=== PATIENT | female | born 1975 | race Caucasian/White ===

== ENCOUNTER 2020-11-07 17:13 | Emergency (ER) | payer OTHER ==
[2020-11-07] MEDS ORDERED: Sodium Chloride 0.9% 10 ML Syringe FLUSH PRN (18:07)
--- NOTE | 2020-11-07 18:07 | EDM.PDOC ---
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 Michelle reported feeling off last night before bed and describes lower abdominal pressure/discomfort. Michelle took Miralax today with not change or improvement. Michelle has taken no OTC medication but drank adequate fluids but decreased appetite, not necessarily loss of appetite. Michelle denies cough or URI symptoms, no diarrhea with decreased BM (none today normally goes twice per day). Michelle denies history of abdominal surgery and no similar symptoms in the past. - Related Data Allergies Allergy/AdvReac Type Severity Reaction Status Date / Time No Known Allergies Allergy Verified 11/07/20 17:48 Home Meds: Home Meds Acetaminophen/HYDROcodone [[place] 325-5 MG] 1 - 2 tab PO Q6H PRN 2 Days #10 tab 11/07/20 [Rx] Cefdinir [Omnicef] 300 mg PO BID 7 Days #14 cap 11/07/20 [Rx] metFORMIN HCl [Metformin HCl ER] 500 mg PO DAILY 30 Days #30 tab.er.24h 11/07/20 [Rx] Past Medical History - Past Surgical History Female Surgical History: Reports: Section Social & Family History - Tobacco Use Tobacco Use Status *Q: Never Tobacco User ED ROS GENERAL - Review of Systems Review Of Systems: Comprehensive ROS is negative, except as noted in HPI. ED EXAM, GI/ABD - Physical Exam Exam: See Below Exam Limited By: No Limitations General Appearance: Alert, WD/WN, Moderate Distress (generalized abdominal discomfort ) Eyes: Bilateral: Normal Appearance Ears: Hearing Grossly Normal Nose: Normal Inspection Throat/Mouth: Normal Voice, No Airway Compromise Neck: Normal Inspection, Supple Respiratory/Chest: Lungs Clear, Normal Breath Sounds Cardiovascular: Normal Peripheral Pulses, Regular Rate, Rhythm GI/Abdominal Exam: Guarding, Rebound, Tender (focal right lower abdominal discomfort ), Abnormal Bowel Sounds (Hypoactive ). No: Distended, Rigid Back Exam: Normal Inspection, Full Range of Motion. No: CVA Tenderness (R), CVA Tenderness (L) Extremities: Normal Inspection Neurological: Alert, Oriented, CN II-XII Intact, Normal Cognition, Normal Gait Psychiatric: Normal Affect, Normal Mood Skin Exam: Warm, Dry, Intact, Normal Color, No Rash Course - Vital Signs Last Recorded V/S: Last Vital Signs Temp 36.0 C L 11/07/20 17:55 Pulse 85 11/07/20 20:13 Resp 16 11/07/20 17:55 BP 113/75 11/07/20 20:13 Pulse Ox 94 L 11/07/20 20:13 - Orders/Labs/Meds Orders: Active Orders 24 hr Category Date Time Status Peripheral IV Care [RC] . DIRECTED Care 11/07/20 18:07 Active UA W/MICROSCOPIC [URIN] Stat Lab 11/07/20 20:49 Received Sodium Chloride 0.9% [Normal Saline] 1,000 ml Med 11/07/20 19:15 Active IV ASDIRECTED Sodium Chloride 0.9% [Normal Saline] 80 ml Med 11/07/20 18:45 Active IV ASDIRECTED Sodium Chloride 0.9% [Saline Flush] Med 11/07/20 18:07 Active 10 ml FLUSH ASDIRECTED PRN cefTRIAXone [Rocephin] 1 gm Med 11/07/20 20:31 Active Sodium Chloride 0.9% [Normal Saline] 50 ml IV ONETIME Peripheral IV Insertion Adult [OM.PC] Urgent Oth 11/07/20 18:07 Ordered Medication Orders Sodium Chloride (Normal Saline) 80 mls @ 3.5 mls/sec IV ASDIRECTED PARISH Last Admin: 11/07/20 18:59 Dose: 3 mls/sec Documented by: ALEC Sodium Chloride (Normal Saline) 1,000 mls @ 500 mls/hr IV ASDIRECTED PARISH Ceftriaxone Sodium 1 gm/ (Sodium Chloride) 50 mls @ 100 mls/hr IV ONETIME ONE Stop: 11/07/20 21:00 Sodium Chloride (Sodium Chloride 0.9% 10 Ml Syringe) 10 ml FLUSH ASDIRECTED PRN PRN Reason: Keep Vein Open Last Admin: 11/07/20 18:27 Dose: 10 ml Documented by: MARVA Labs: Laboratory Tests 11/07/20 11/07/2011/07/21 Range/Units 17:59 18:22 18:22 WBC 10.6 (4.5-11.0) K/uL RBC 5.83 H (3.30-5.50) M/uL Hgb 14.1 (12.0-15.0) g/dL Hct 41.1 (36.0-48.0) % MCV 71 L (80-98) fL MCH 24 L (27-31) pg MCHC 34 (32-36) % Plt Count 266 (150-400) K/uL Add Manual Diff Yes Neutrophils % (Manual) 71 H (36-66) % Lymphocytes % (Manual) 21 L (24-44) % Monocytes % (Manual) 6 (2-6) % Eosinophils % (Manual) 2 (2-4) % Atypical Lymphocytes Few Sodium 136 L (140-148) mmol/L Potassium 3.8 (3.6-5.2) mmol/L Chloride 100 (100-108) mmol/L Carbon Dioxide 23 (21-32) mmol/L Anion Gap 16.8 H (5.0-14.0) mmol/L BUN 8 (7-18) mg/dL Creatinine 0.7 (0.6-1.0) mg/dL Est Cr Clr Drug Dosing 108.30 mL/min Estimated GFR (MDRD) > 60 (>60) Glucose 272 H (74-106) mg/dL Calcium 8.7 (8.5-10.1) mg/dL Total Bilirubin 0.6 (0.2-1.0) mg/dL AST 13 L (15-37) U/L ALT 25 (12-78) U/L Alkaline Phosphatase 102 (46-116) U/L C-Reactive Protein (0.0-0.3) mg/dL Total Protein 6.8 (6.4-8.2) g/dL Albumin 3.4 (3.4-5.0) g/dL Globulin 3.4 (2.3-3.5) g/dL Albumin/Globulin Ratio 1.0 L (1.2-2.2) Urine Color Brown A (YELLOW) Urine Appearance Turbid A (CLEAR) Urine pH 5.5 (5.0-8.0) Ur Specific [place] >= 1.030 (1.008-1.030) Urine Protein >=300 H (NEGATIVE) mg/dL Urine Glucose (UA) 500 H (NEGATIVE) mg/dL Urine Ketones >=160 H (NEGATIVE) mg/dL Urine Occult Blood Large H (NEGATIVE) Urine Nitrite Positive H (NEGATIVE) Urine Bilirubin Small H (NEGATIVE) Urine Urobilinogen 0.2 (0.2-1.0) EU/dL Ur Leukocyte Esterase Trace H (NEGATIVE) Urine RBC >100 H (0-5) Urine WBC 50-75 H (0-5) Ur Epithelial Cells Moderate Amorphous Sediment Not seen Urine Bacteria Many Urine Mucus Moderate // Range/Units 18:22 WBC (4.5-11.0) K/uL RBC (3.30-5.50) M/uL Hgb (12.0-15.0) g/dL Hct (36.0-48.0) % MCV (80-98) fL MCH (27-31) pg MCHC (32-36) % Plt Count (150-400) K/uL Add Manual Diff Neutrophils % (Manual) (36-66) % Lymphocytes % (Manual) (24-44) % Monocytes % (Manual) (2-6) % Eosinophils % (Manual) (2-4) % Atypical Lymphocytes Sodium (140-148) mmol/L Potassium (3.6-5.2) mmol/L Chloride (100-108) mmol/L Carbon Dioxide (21-32) mmol/L Anion Gap (5.0-14.0) mmol/L BUN (7-18) mg/dL Creatinine (0.6-1.0) mg/dL Est Cr Clr Drug Dosing mL/min Estimated GFR (MDRD) (>60) Glucose (74-106) mg/dL Calcium (8.5-10.1) mg/dL Total Bilirubin (0.2-1.0) mg/dL AST (15-37) U/L ALT (12-78) U/L Alkaline Phosphatase (46-116) U/L C-Reactive Protein 3.47 H (0.0-0.3) mg/dL Total Protein (6.4-8.2) g/dL Albumin (3.4-5.0) g/dL Globulin (2.3-3.5) g/dL Albumin/Globulin Ratio (1.2-2.2) Urine Color (YELLOW) Urine Appearance (CLEAR) Urine pH (5.0-8.0) Ur Specific [place] (1.008-1.030) Urine Protein (NEGATIVE) mg/dL Urine Glucose (UA) (NEGATIVE) mg/dL Urine Ketones (NEGATIVE) mg/dL Urine Occult Blood (NEGATIVE) Urine Nitrite (NEGATIVE) Urine Bilirubin (NEGATIVE) Urine Urobilinogen (0.2-1.0) EU/dL Ur Leukocyte Esterase (NEGATIVE) Urine RBC (0-5) Urine WBC (0-5) Ur Epithelial Cells Amorphous Sediment Urine Bacteria Urine Mucus Meds: Medications Generic Name Dose Route Start Last Admin Trade Name Haris PRN Reason Stop Dose Admin Sodium Chloride 80 mls @ 3.5 mls/sec 11/07/20 18:45 11/07/20 18:59 Normal Saline IV 3 mls/sec ASDIRECTED PARISH Administration Sodium Chloride 1,000 mls @ 500 mls/hr 11/07/20 19:15 Normal Saline IV ASDIRECTED PARISH Ceftriaxone Sodium 1 gm/ 50 mls @ 100 mls/hr 11/07/20 20:31 Sodium Chloride IV 11/07/20 21:00 ONETIME ONE Sodium Chloride 10 ml 11/07/20 18:07 11/07/20 18:27 Sodium Chloride 0.9% 10 Ml Syringe FLUSH 10 ml ASDIRECTED PRN Administration Keep Vein Open Discontinued Medications Generic Name Dose Route Start Last Admin Trade Name Haris PRN Reason Stop Dose Admin Hydrocodone Bitart/Acetaminophen 2 tab 11/07/20 20:45 Acetaminophen/Hydrocodone 325-5 Mg Tab PO 11/07/20 20:46 ONETIME ONE Fentanyl 50 mcg 11/07/20 18:11 11/07/20 18:27 Fentanyl 100 Mcg/2 Ml Sdv IVPUSH 11/07/20 18:12 50 mcg ONETIME ONE Administration Iopamidol 123 ml 11/07/20 18:33 11/07/20 18:59 Iopamidol 612 Mg/Ml 500 Ml Multipack Bottle IV 11/07/20 18:34 123 ml ONETIME ONE Administration Ondansetron HCl 4 mg 11/07/20 18:08 11/07/20 18:27 Ondansetron 4 Mg/2 Ml Sdv IVPUSH 11/07/20 18:09 4 mg ONETIME ONE Administration Sodium Chloride 10 ml 11/07/20 18:33 11/07/20 18:59 Sodium Chloride 0.9% 10 Ml Syringe FLUSH 11/07/20 18:34 10 ml ONETIME ONE Administration - Re-Assessments/Exams Free Text/Narrative Re-Assessment/Exam: Update Michelle regarding UA results with moderate skin cells with multiple positive findings indicating possible infection, diabetes with ketones but contaminated. UC is not appropriate on current available sample. Ordered UA via straight catheter for further evaluation and allow for UC testing. Blood work noting slightly elevated WBC with left shift indicating possible infection and elevated CRP. Renal and Liver function without significant abnormality to explain symptoms or concerns. test ordered but declined need by patient therefore, cancelled. Chemo shows glu 270s indicating new onset of type 2 diabetes with increased anion gap, dehydration possible. IVF 1 Liter infused at this time while waiting for CT results. Ordered Urine test with Straight cath for further evaluation and testing, patient considering. 11/07/20 19:[address] results noting normal appendix but findings around bladder and right inferior ureter concerning for localized infection. Urine via catheterization was obtained and UC ordered on catheter sample. Rocephin 1 Gm IV infused with plan to prescribed Cefidinir for home use with follow-up to ensure resolution. [place] for moderate to severe pain here and home use discussed. 11/07/20 20:52 Departure - Departure Time of Disposition: 22:30 Disposition: Home, Self-Care 01 Clinical Impression: Urinary tract infection, Dehydration, Diabetes - Discharge Information Prescriptions: Acetaminophen/HYDROcodone [[place] 325-5 MG] 1 - 2 tab PO Q6H PRN 2 Days #10 tab PRN Reason: Pain (Severe 7-10) metFORMIN HCl [Metformin HCl ER] 500 mg PO DAILY 30 Days #30 tab.er.24h Cefdinir [Omnicef] 300 mg PO BID 7 Days #14 cap Instructions: Type 2 Diabetes Mellitus, Diagnosis, Adult, Tips for Eating Away From Home If You Have Diabetes, Complementary and Alternative Medical Therapies for Diabetes, Rehydration, Adult, Dehydration, Adult, Urinary Tract Infection, Adult Referrals: PCP,None [Primary Care Provider] - Forms: ED Department Discharge Additional Instructions: 1. Increase fluid intake to help improve hydration and blood sugar. 2. Cefdinir 300mg every am and pm x 7 days for urinary tract infection noted on UA and CT findings. 3. Ibuprofen 600-800mg every 6-8hrs with food for pain, swelling and inflammation. 4. Tylenol 500-1000mg every 6-8 hours as needed for mild to moderate pain OR 5. [place] Hydrocodone 5.g/Tylenol 325mg 1-2 tablets every 6hr as needed fro moderate to severe pain #10 Max 6 per 24hrs 6. Metformin XR daily for elevated blood sugar 270+ random BS and glucose in urine with ketones. Primary rn transitional care may increased dose gradually as tolerated to 2 tablets every am and pm. 7. Urine culture ordered and pending due to complicated urinary tract infection due to elevated blood sugar and ureteral involvement. Sepsis Event Note (ED) - Evaluation Sepsis Screening Result: No Definite Risk - Focused Exam Vital Signs: Vital Signs Temp Pulse Resp BP Pulse Ox 11/07/20 20:13 85 113/75 94 L 11/07/20 17:55 36.0 C L 103 H 16 129/90 97 - My Orders Last 24 Hours: My Active Orders 11/07/20 18:07 Peripheral IV Care [RC] . DIRECTED Sodium Chloride 0.9% [Saline Flush] 10 ml FLUSH ASDIRECTED PRN Peripheral IV Insertion Adult [OM.PC] Urgent 11/07/20 18:45 Sodium Chloride 0.9% [Normal Saline] 80 ml IV ASDIRECTED 11/07/20 19:15 Sodium Chloride 0.9% [Normal Saline] 1,000 ml IV ASDIRECTED 11/07/20 20:31 cefTRIAXone [Rocephin] 1 gm Sodium Chloride 0.9% [Normal Saline] 50 ml IV ONETIME 11/07/20 20:49 UA W/MICROSCOPIC [URIN] Stat - Assessment/Plan Last 24 Hours: My Active Orders 11/07/20 18:07 Peripheral IV Care [RC] . DIRECTED Sodium Chloride 0.9% [Saline Flush] 10 ml FLUSH ASDIRECTED PRN Peripheral IV Insertion Adult [OM.PC] Urgent 11/07/20 18:45 Sodium Chloride 0.9% [Normal Saline] 80 ml IV ASDIRECTED 11/07/20 19:15 Sodium Chloride 0.9% [Normal Saline] 1,000 ml IV ASDIRECTED 11/07/20 20:31 cefTRIAXone [Rocephin] 1 gm Sodium Chloride 0.9% [Normal Saline] 50 ml IV ONETIME 11/07/20 20:49 UA W/MICROSCOPIC [URIN] Stat
[2020-11-07] MEDS ORDERED: Ondansetron 4 MG/2 ML SDV IVPUSH ONE (18:08)
[2020-11-07] MEDS ORDERED: fentaNYL 100 MCG/2 ML SDV IVPUSH ONE (18:11)
[2020-11-07] MEDS ORDERED: Sodium Chloride 0.9% 10 ML Syringe FLUSH ONE (18:33)
[2020-11-07] MEDS ORDERED: Iopamidol 612 MG/ML 500 ML Multipack Bottle IV ONE (18:33)
[2020-11-07] MEDS ORDERED: Sodium Chloride 0.9% 80 ML IV SCH (18:45)
[2020-11-07] MEDS ORDERED: Sodium Chloride 0.9% 1,000 ML IV SCH (19:15)
--- NOTE | 2020-11-07 19:55 | CRLCT ---
For Patients: As a result of the Century Cures Act, medical imaging exams and procedure reports are released immediately into your electronic medical record. You may view this report before your referring provider. If you have questions, please contact your health care provider. INDICATION: Right lower quadrant pain. TECHNIQUE: CT abdomen and pelvis acquired with 123 mL Isovue-300 IV contrast. COMPARISON: None. FINDINGS: Lower chest: Normal heart size. No pericardial effusion. Lung bases are clear. Liver: Unremarkable. Spleen: Unremarkable. Pancreas: Unremarkable. Gallbladder and bile ducts: Unremarkable. Kidneys: There is uroepithelial thickening involving the right urinary tract (ureter and renal pelvis), likely related to urinary tract infection. No abnormal enhancement of the right kidney to suggest pyelonephritis. No urinary tract stones or hydroureteronephrosis. Adrenal glands: Unremarkable. GI tract: No abnormally dilated bowel to suggest obstruction. Appendix is normal. Moderate amount of stool. Vascular structures: Unremarkable. Lymph nodes: No pathologically enlarged lymph nodes are identified. Miscellaneous: No free air. Trace free fluid in the pelvis may be physiologic. Small fat-containing umbilical hernia. Pelvic Organs: Urinary bladder wall appears mildly thickened, with mild perivesicular edema. This is likely related to cystitis. Calcified uterine fibroid. No appreciable adnexal mass. Bones: No acute abnormality. IMPRESSION: 1. There is mild urinary bladder wall thickening with mild perivesicular edema, as well as mild right-sided ureteral and renal pelvis uroepithelial thickening. Findings are likely related to a urinary tract infection. Correlate with UA. 2. Incidental findings as noted. Dictated by Charan Clayton MD @ 11/07/2020 7:52:42 PM Please note that all CT scans at this facility use dose modulation, iterative reconstruction, and/or weight-based dosing when appropriate to reduce radiation dose to as low as reasonably achievable. Dictated by: Charan Clayton MD @ 11/07/2020 19:53:49 (Electronically Signed)
[2020-11-07] MEDS ORDERED: cefTRIAXone 1 GM in Sodium Chloride 0.9% 50 ML IV ONE (20:31)
[2020-11-07] MEDS ORDERED: Acetaminophen/HYDROcodone 325-5 MG Tab PO ONE (20:45)
== END 2020-11-07 23:00 | disposition home or self-care (01) ==
LOC: JP.ED 17:13 → EDBD 17:13 → JP.ED 23:00
DX: N39.0 Urinary tract infection, site not specified (principal); E86.0 Dehydration; E11.9 Type 2 diabetes mellitus without complications; Z79.84 Long term (current) use of oral hypoglycemic drugs
CPT/HCPCS: 36415; 74177; 80053; 81001; 85025; 86140; 87086; 87088; 87186; 96365; 96375; 99284; A9270; J0696; J2405; J3010; J7030; Q9967